=== PATIENT | male | born 1955 | race Caucasian/White ===

== ENCOUNTER → 2019-01-13 | Outpatient (CLI) | payer MEDICARE, OTHER ==
[~2019-01-13] MED LIST: ASPIRIN 32325 MG/TAB PO; ASPIRIN E.C. 8181 MG PO; CLARITIN 1010 MG/TAB PO; CLOPIDOGREL PO; CRESTOR20 MG PO; LISINOPRIL20 MG PO; LISINOPRIL5 MG PO; LOW DOSE ASPIRI81 MG PO; MEDI-FIRST ASP325 MG PO; NIASPAN 500MG500 MG PO; NIASPAN500 MG PO; NO HOME MEDICATIONS; PEPCID 20MG TAB20 MG PO; PLAVIX 75MG TAB75 MG PO; PRAVACHOL 40MG40 MG PO; PREDNISONE10 MG PO; TOPROL XL 25MG25 MG PO; TOPROL XL25 MG PO; TYLENOL 325MG325 MG PO; ZESTRIL 20MG TA20 MG PO
== END ==
LOC: COL.RAD 10:13
DX: Z13.6 Encounter for screening for cardiovascular disorders (principal); F17.201 Nicotine dependence, unspecified, in remission

== ENCOUNTER 2021-03-19 22:16 | Emergency (ER) | payer MEDICARE, OTHER ==
[~2021-03-19] VITALS: Ht 172.7 cm; Wt 72.7 kg
[2021-03-19 22:48] LABS: BASO % 0.3 % (0.0-2.0); EOS # 0.1 K/mm3 (0.0-0.7); EOS % 0.9 % (0-4.0); GRAN # 3.5 K/mm3 (1.4-6.5); GRAN % 60.3 % (42.2-75.2); HEMATOCRIT 43.9 % (42.0-52.0); HEMOGLOBIN 15.1 g/dl (13.5-18.0); LYMPH # 1.8 K/mm3 (1.2-3.4); LYMPH % 30.4 % (20.0-51.0); MEAN CELL VOLUME 90 fl (80.0-100.0); MEAN CORPUSCULAR HEMOGLOBIN 31 pg (27.0-31.0); MEAN CORPUSCULAR HGB CONC 34 g/dl (33.0-37.0); MEAN PLATELET VOLUME 9.8 fl (7.4-10.4); MONO # 0.5 K/mm3 (0.1-0.6); MONO % 7.9 % (1.7-9.3); PLATELET COUNT 235 K/mm3 (130-400); RED BLOOD COUNT 4.89 M/mm3 (4.20-5.60); REDCELL DISTRIBUTION WIDTH-CV 12.1 % (11.5-14.5)
[2021-03-19] MEDS ORDERED: MAGNESIUM500 MG PO (22:48)
[2021-03-19 23:02] LABS: ALBUMIN 4.3 gm/dL (3.4-4.8); BILIRUBIN,TOTAL 0.5 mg/dL (0.2-1.2); CALCIUM 9.1 mg/dL (8.4-10.2); CREATININE, serum 1.2 mg/dL (0.72-1.25); POTASSIUM 4.6 mmol/L (3.5-4.5); TOTAL PROTEIN 7.3 gm/dL (6.2-8.1)
[2021-03-19 23:52] VITALS: BP 127/78; PULSE 61
== END 2021-03-19 23:52 | disposition home or self-care (01) ==
LOC: COL.ER 22:16
PROVIDERS: Personal Emergency Response Attendant
DX: S01.312A Laceration without foreign body of left ear, initial encounter (principal); S09.90XA Unspecified injury of head, initial encounter; F10.129 Alcohol abuse with intoxication, unspecified; I10 Essential (primary) hypertension; E78.5 Hyperlipidemia, unspecified; I25.10 Atherosclerotic heart disease of native coronary artery without angina pectoris; Z87.891 Personal history of nicotine dependence; Z79.82 Long term (current) use of aspirin; Z79.899 Other long term (current) drug therapy; Y90.6 Blood alcohol level of 120-199 mg/100 ml; W19.XXXA Unspecified fall, initial encounter; Y92.59 Other trade areas as the place of occurrence of the external cause

== ENCOUNTER 2022-01-19 12:17 | Emergency (ER) | payer MEDICARE ==
[~2022-01-19] VITALS: Ht 172.7 cm; Wt 78.2 kg
[~2022-01-19 12:17] MED LIST changes: +MAGNESIUM500 MG PO
[2022-01-19 12:27] VITALS: TEMP 98.1
[2022-01-19 14:25] VITALS: BP 174/90; PULSE 60
== END 2022-01-19 14:25 | disposition home or self-care (01) ==
LOC: COL.ER 12:17
DX: R03.0 Elevated blood-pressure reading, without diagnosis of hypertension (principal); Z95.5 Presence of coronary angioplasty implant and graft; Z86.79 Personal history of other diseases of the circulatory system; Z28.310 Unvaccinated for COVID-19

== ENCOUNTER → 2023-02-26 | Outpatient (CLI) | payer MEDICARE | LOC: COL.RAD 12:23 | DX: Z12.2 Encounter for screening for malignant neoplasm of respiratory organs (principal) ==